=== PATIENT | male | born 1975 | race Two or more races ===

== ENCOUNTER 2024-08-21 17:58 | Emergency (ER) | payer MEDICAID, OTHER ==
[~2024-08-21] VITALS: Ht 185.4 cm; Wt 91.3 kg
[2024-08-21 18:47] LABS: Urine Bacteria None Seen /hpf (None Seen)
[2024-08-21 18:56] LABS: Urine Blood TRACE /uL (Negative); Urine Clarity Turbid (Clear); Urine Color Yellow (Yellow); Urine Mucus FEW (None Seen); Urine Protein, UAD 2+ (Negative); Urine Specific Gravity 1.047 (1.001-1.035); Urine Squamous Epithelial Cell MOD /hpf (<5); Urine Urobilinogen 3 mg/dL (Negative); Urine WBC 74 /hpf (0 - 3)
[2024-08-21 19:06] VITALS: BP 149/103; PULSE 84; RESP 19; TEMP 98.3; O2SAT 100
[2024-08-21] MEDS: ONDANSETRON HCL 4 MG/2 ML VIAL IM ONE (19:34)
--- NOTE | 2024-08-21 19:41 | ED.PDOC ---
GI ASSESSMENT HPI Comments Pt presents to the ER with a C/C of flu like symptoms. Pt reports N/V, body aches, fever, cough, and congestion for approx. 3 days. Denies any CP, SOB, or other symptoms at this time, pt afebrile at the moment, no respiratory distress noted. Pt also reports possible UTI reports strong odor to urine. Chief Complaint: Flu like Time Seen by MD: 18:33 Reviewed Notes: Nurses Notes, Medications, Allergies Information Source: Patient Mode of Arrival: Wheelchair Past Medical History PAST MEDICAL HISTORY: Denies Surgical History: Denies all surgeries Family History Family History: Reviewed,noncontributory to illness Social History Smoker: Non-Smoker Alcohol: Denies ETOH Use Drugs: Denies Drug Use Constitutional: reports: fever; denies: chills, diaphoresis, fatigue, malaise, sweats, weakness, others EENTM: reports: nasal discharge, throat pain; denies: blurred vision, double vision, ear bleeding, ear discharge, ear drainage, ear pain, ear ringing, eye pain, eye redness, hearing loss, mouth pain, mouth swelling, nose bleeding, nose congestion, nose pain, photophobia, tearing, throat swelling, voice changes, others Respiratory: reports: cough; denies: hemoptysis, orthopnea, SOB at rest, shortness of breath, SOB with excertion, stridor, wheezing, others Cardiovascular: denies: chest pain, dizzy spells, diaphoresis, Dyspnea on exertion, edema, irregular heart beat, left arm pain, lightheadedness, pal pitations, PND, syncope, others Gastrointestinal: reports: nausea, vomiting; denies: abdomen distended, abdominal pain, blood streaked bowels, constipated, diarrhea, dysphagia, difficulty swallowing, hematemesis, melena, poor appetite, poor fluid intake, rectal bleeding, rectal pain, others Genitourinary: reports: others (Odor); denies: burning, dysuria, flank pain, frequency, hematuria, incontinence, penile discharge, penile sore, pain, testicle pain, testicle swelling, urgency Neurological: denies: dizziness, fainting, headache, left sided numbness, left sided weakness, numbness, paresthesia, pre-existing deficit, right sided num bness, right sided weakness, seizure, speech problems, tingling, tremors, weakness, others Musculoskeletal: denies: back pain, gout, joint pain, joint swelling, muscle pain, muscle stiffness, neck pain, others Integumetry: denies: bruises, change in color, change in hair/nails, dryness, laceration, lesions, lumps, rash, wounds, others Allergic/Immunocompromised: denies: Difficulty Healing, Frequent Infections, Hives, Itching, others Hematologic/Lymphatic: denies: anemia, blood clots, easy bleeding, easy bruising, swollen glands, others Endocrine: denies: excessive hunger, excessive sweating, excessive thirst, excessive urination, flushing, intolerance to cold, intolerance to heat, unexplained weight gain, unexplained weight loss, others Psychiatric: denies: anxiety, bipolar disorder, depression, hopeless, panic disorder, schizophrenia, sleepless, suicidal, others Physical Exam General Appearance: No Apparent Distress, Normal HEENT: Normal ENT Inspection, Pharynx Normal, TMs Normal Neck: Full Range of Motion, Non-Tender Respiratory: Lungs Clear, No Respiratory Distress, Normal Breath Sounds Cardiovascular: No Edema, No JVD, No Murmur, No Gallop, Normal Peripheral Pulses, Regular Rate/Rhythm Breast Exam: Deferred Gastrointestinal: No Organomegaly, Non Tender, No Pulsatile Mass, Normal Bowel Sounds, Soft Genitalia: Deferred Pelvic: Deferred Rectal: Deferred Extremities: Normal capillary refill, Normal inspection, Normal range of motion, Non-tender, No pedal edema Musculoskeletal : Apperance: Normal Neurologic: Alert, solar lab technician II-XII nml as Tested, No Motor Deficits, Normal Affect, Normal Mood, No Sensory Deficits Cerebellar Function: Normal Reflexes: Normal Skin: Dry, Normal Color, Warm Lymphatic: No Adenopathy Was a procedure done? Was a procedure done?: No GI differential Dx Differential Diagnosis: Gastroenteritis, UTI, Electrolyte Imbalance, Food Poisoning X-Ray, Labs, Meds, VS Vital Signs Date Time Temp Pulse Resp B/P (MAP) Pulse Ox O2 Delivery O2 Flow Rate FiO2 08/21/24 19:06 84 19 100 Room Air 08/21/24 19:06 98.3 84 19 149/103 (118) 100 98.3 08/21/24 18:32 98.5 84 19 149/103 (118) 100 Lab Test 08/21/24 18:28 Range/Units Urine Color Yellow Yellow Urine Clarity Turbid H Clear Urine pH 6.0 5.0-9.0 Urine Specific [place] 1.047 H 1.001-1.035 Urine Protein 2+ H Negative Urine Ketones Trace Negative Urine Blood Trace H Negative /uL Urine Nitrite Negative Negative Urine Bilirubin 1+ Negative Urine Urobilinogen 3 H Negative mg/dL Urine Leukocyte Esterase 3+ Negative /uL Urine RBC 5 0 - 3 /hpf Urine WBC 74 0 - 3 /hpf Urine Squamous Epithelial Cells Mod <5 /hpf Urine Bacteria None seen None Seen /hpf Urine Mucus Few None Seen Urine Glucose Trace Normal mg/dL Current Medications Medications (Trade) Dose Ordered Sig/Jennifer Route Start Time Stop Time Status Last Admin Ondansetron HCl (Zofran) 4 mg ONCE ONCE IM 08/21/24 19:30 08/21/24 19:31 DC 08/21/24 19:34 Ketorolac Tromethamine (Toradol Injection) 60 mg ONCE ONCE IM 08/21/24 20:15 08/21/24 20:16 DC 08/21/24 20:45 X-Ray, Labs, Meds, VS Comment Zofran 4 mg IM given nausea and vomiting. TORADOL 60 MG IM FOR BODY ACHES.. UA POSITIVE FOR WBCS AND LEUKOCYTE ESTERASE. PATIENT REPORTS ODOR, PATIENT IS PARAPLEGIC AND STATES UNABLE TO FEEL ANY SYMPTOMS BELOW THE WAIST REGARDING BURNING WITH URINATION. PATIENT GIVEN TORADOL 60 MG IM REPORTS IMPROVEMENT IN PAIN REQUESTING DISCHARGE AT THIS TIME. LIKELY GASTROENTERITIS WE WILL SCRIPT ZOFRAN TO MAINTAIN P.O. FLUIDS, AND MACROBID FOR UTI. ADVISED TO REST INCREASE P.O. FLUIDS WITH ELECTROLYTES [id number] TYLENOL OR MOTRIN NEEDED FOR PAIN OR FEVER. FOLLOW UP WITH YOUR PCP IN 2-3 DAYS NECESSARY. ER RETURN PRECAUTIONS GIVEN PATIENT INDICATED UNDERSTANDING AGREES WITH DISCHARGE CARE PLAN. Time of 1ST Reevaluation: 20:55 Reevaluation 1ST: Improved Patient Education/Counseling: Diagnosis, Treatment, Prognosis, Need For Follow Up Family Education/Counseling: No Family Present Departure 1 Departure Time of Disposition: 20:56 Impression: Primary Impression: Gastroenteritis Additional Impression: Acute cystitis without hematuria Disposition: 01 HOME / SELF CARE / HOMELESS Condition: Stable e-Prescriptions Ibuprofen (Ibuprofen) 800 Mg Tab 1 TAB PO TID PRN for 5 Days, #15 TAB Prov: ROYAL MCELROY 08/21/24 Ondansetron Odt 4MG Tab (ZOFRAN PO) 4 Mg Tb 4 MG PO TID PRN for 4 Days, #12 TAB ODT TAB-DISSOLVE IN MOUTH, THEN SWALLOW Prov: ROYAL MCELROY 08/21/24 Discharged With: Self Critical Care Note Critical Care Time?: No Stability Stability form required: ROYAL Huntley Aug 21, 2024 19:41
[2024-08-21] MEDS: KETOROLAC TROMETH 60MG/2ML VIAL IM ONE (20:45)
[2024-08-21] MEDS ORDERED: IBUP-1456 PO (21:00)
[2024-08-21] MEDS ORDERED: ZOFR4T PO (21:00)
[2024-08-21] MEDS ORDERED: CIPR-173 PO (21:08)
[2024-08-21] MEDS: ONDANSETRON ODT 4 MG TAB PO ONE (21:14)
== END 2024-08-21 21:14 | disposition home or self-care (01) ==
LOC: ER 17:58
DX: K52.9 Noninfective gastroenteritis and colitis, unspecified (principal); N30.00 Acute cystitis without hematuria
CPT/HCPCS: 81001; 96372; 99284; J1885; J2405